=== PATIENT | male | born 1965 | race Caucasian/White ===

== ENCOUNTER → 2018-04-19 | Outpatient (CLI) | payer BC ==
--- NOTE | 2018-04-19 11:25 | RAD ---
Chest, 2 views, 04/19/2018: HISTORY: Asthma No previous chest radiographs are available at this time for comparison purposes. The heart size is normal. No pulmonary infiltrate is seen. There is no evidence of pleural fluid. There is a mild thoracolumbar scoliosis. A surgical plate and screws is evident in the lower cervical spine. There is mild loss of height of a vertebral body at the thoracolumbar junction level, of indeterminate age. IMPRESSION: No acute cardiopulmonary abnormality is detected. Electronically signed by: Nik King MD (04/19/2018 11:21 AM) [facility]
== END | disposition home or self-care (01) ==
LOC: RAD 09:05
PROVIDERS: ATTEND Internal Medicine Critical Care Medicine
DX: J45.909 Unspecified asthma, uncomplicated (principal); M41.85 Other forms of scoliosis, thoracolumbar region
CPT/HCPCS: 71046